=== PATIENT | female | born 1960 | race Caucasian/White ===

== ENCOUNTER 2017-07-08 10:20 | Emergency (ER) | payer OTHER ==
[2017-07-08 11:24] VITALS: BP 111/73
--- NOTE | 2017-07-08 11:40 | UC ---
Respiratory Complaint HPI - HPI Summary HPI Summary: cough for the last 8 days. no fever. Productive of yellow sputum. no sob. she has hx of bronchitis and at times needs prednisone. she has an inhaler at home already. - History of Current Complaint Chief Complaint: UCRespiratory Stated Complaint: CHEST CONGESTION, COUGH Time Seen by Provider: 07/08/17 11:30 Hx Obtained From: Patient Onset/Duration: Sudden Onset, Lasting Days Timing: Constant Severity Initially: Mild Severity Currently: Moderate Character: Cough: Productive Aggravating Factors: Nothing Alleviating Factors: Nothing Associated Signs And Symptoms: Positive: Wheezing, URI. Negative: Dyspnea, Fever, Chills, Pleuritic Chest Pain, Calf Pain, Calf Swelling - Risk Factors Pulmonary Embolism Risk Factors: Smoking - Allergies/Home Medications Allergies/Adverse Reactions: Allergies Allergy/AdvReac Type Severity Reaction Status Date / Time No Known Allergies Allergy Verified 07/08/17 11:20 Home Medications: Home Medications Fluticasone NASAL SPRAY 50MCG* [Flonase NASAL SPRAY 50MCG*] 2 spray BOTH NARES DAILY PRN 07/08/17 [History Confirmed 07/08/17] Varenicline (NF) [Chantix 1 MG TAB (NF)] 1 mg PO DAILY 07/08/17 [History Confirmed 07/08/17] PMH/Surg Hx/FS Hx/Imm Hx Previously Healthy: No - bronchitis. - Surgical History Surgical History: Yes Surgery Procedure, Year, and Place: left knee age 8 - Family History Known Family History: Positive: Hypertension - Social History Alcohol Use: Rare Substance Use Type: None Smoking Status (MU): Former Smoker Amount Used/How Often: 5 cigs per day Length of Time of Smoking/Using Tobacco: / PPD for 35 Years Have You Smoked in the Last Year: Yes When Did the Patient Quit Smoking/Using Tobacco: ~06/07/17 - Immunization History Most Recent Influenza Vaccination: Not the Season Review of Systems Respiratory: Cough All Other Systems Reviewed And Are Negative: Yes Physical Exam Triage Information Reviewed: Yes Appearance: Well-Appearing, No Pain Distress, Well-Nourished Vital Signs: Initial Vital Signs Temp 98.1 F 07/08/17 11:18 Pulse 80 07/08/17 11:18 Resp 18 07/08/17 11:18 BP 111/73 07/08/17 11:18 Pulse Ox 96 07/08/17 11:18 Vital Signs Reviewed: Yes Eye Exam: Normal ENT Exam: Normal Neck exam: Normal Respiratory: Positive: No respiratory distress, No accessory muscle use, Decreased breath sounds, Wheezing, Other: - truong decreased breath movements. no rales there is mild wheezing and rhonchi. there is no resp distress and she is talking in full sentences.. Negative: Crackles, Rhonchi, Stridor UC Diagnostic Evaluation - Laboratory O2 Sat by Pulse Oximetry: 96 Respiratory Course/Dx - Course Course Of Treatment: she has bronchitis without any symptoms or signs of pneumonia. she will return for any worsening. - Differential Dx/Diagnosis Provider Diagnoses: acute bronchitis with reactive airway disease. Discharge - Discharge Plan Condition: Good Disposition: HOME Prescriptions: Azithromyxin HERMANN (NF) [Z-Hermann (Zithromax) 250 mg tabs #6] 2 tab PO .TODAY, THEN 1 DAILY #6 tab Benzonatate CAP* [Tessalon 100 MG CAP*] 100 mg PO TID #20 cap predniSONE TAB* [Deltasone TAB*] 20 mg PO DAILY #20 tab Patient Education Materials: Acute Bronchitis (ED) Referrals: Jose E Vides MD [Primary Care Provider] - 4 Days
== END 2017-07-08 11:48 | disposition home or self-care (01) ==
LOC: UCCORT 10:20
DX: J20.9 Acute bronchitis, unspecified (principal); Z87.891 Personal history of nicotine dependence; J45.909 Unspecified asthma, uncomplicated
CPT/HCPCS: 99212; G0463

== ENCOUNTER 2018-10-06 10:12 | Emergency (ER) | payer OTHER ==
[2018-10-06 10:58] VITALS: BP 127/70
--- NOTE | 2018-10-06 11:33 | UC ---
Respiratory Complaint HPI - HPI Summary HPI Summary: Cough and congestion for 5 days or so. She has hx of asthma. REcently quit tob. She is not sure if she has copd but does need prednisone and inhalers with respiratory illness usually. - History of Current Complaint Chief Complaint: UCRespiratory Stated Complaint: COUGH,CONGESTION Time Seen by Provider: 10/06/18 11:16 Hx Obtained From: Patient ?: No Onset/Duration: Gradual Onset, Lasting Days Timing: Constant Severity Initially: Moderate Severity Currently: Moderate Pain Intensity: 0 Character: Cough: Nonproductive Aggravating Factors: Deep Breaths, Recumbent Position Alleviating Factors: Nothing Associated Signs And Symptoms: Positive: Chills, Wheezing, URI, Nasal Congestion , Hoarseness. Negative: Fever, Hemoptysis, Dizziness, Calf Pain, Calf Swelling - Allergies/Home Medications Allergies/Adverse Reactions: Allergies Allergy/AdvReac Type Severity Reaction Status Date / Time No Known Allergies Allergy Verified 10/06/18 10:58 Home Medications: Home Medications buPROPion TAB* [Wellbutrin TAB*] 75 mg PO BID 10/06/18 [History Confirmed ] PMH/Surg Hx/FS Hx/Imm Hx Previously Healthy: No - smoker, asthma. Respiratory History: Asthma - Surgical History Surgical History: Yes Surgery Procedure, Year, and Place: left knee age 8 - Family History Known Family History: Positive: Hypertension - Social History Alcohol Use: Rare Substance Use Type: None Smoking Status (MU): Former Smoker Amount Used/How Often: 5 cigs per day Length of Time of Smoking/Using Tobacco: / PPD for 35 Years Have You Smoked in the Last Year: Yes When Did the Patient Quit Smoking/Using Tobacco: ~06/07/17 - Immunization History Most Recent Influenza Vaccination: Not the Season Review of Systems All Other Systems Reviewed And Are Negative: Yes Constitutional: Positive: Chills ENT: Positive: Sinus Congestion Respiratory: Positive: Cough Is Patient Immunocompromised?: No Physical Exam Triage Information Reviewed: Yes Appearance: Well-Appearing, No Pain Distress, Well-Nourished Vital Signs: Initial Vital Signs Temp 99.3 F 10/06/18 10:56 Pulse 83 10/06/18 10:56 Resp 18 10/06/18 10:56 BP 127/70 10/06/18 10:56 Pulse Ox 98 10/06/18 10:56 Vital Signs Reviewed: Yes Eyes: Positive: Conjunctiva Clear. Negative: Conjunctiva Inflamed ENT: Positive: Pharynx normal, Nasal congestion, TMs normal, Hoarse voice, Uvula midline. Negative: Pharyngeal erythema, Nasal drainage, TM bulging, TM dull, TM red, Tonsillar swelling, Tonsillar exudate, Trismus, Muffled voice, Sinus tenderness Neck: Positive: Supple, Nontender, No Lymphadenopathy Respiratory: Positive: No respiratory distress, No accessory muscle use, Rhonchi , Wheezing, Other: - talking in full sentences.. Negative: Respiratory distress , Crackles, Stridor, Expiration, Inspiration Cardiovascular: Positive: RRR, No Murmur, Pulses Normal, Brisk Capillary Refill Abdomen Description: Positive: No Organomegaly, Soft. Negative: Distended, Guarding Musculoskeletal: Positive: Strength Intact, ROM Intact, No Edema Neurological: Positive: Alert, Muscle Tone Normal. Negative: Fatigued Psychological: Positive: Age Appropriate Behavior Skin: Negative: Rashes UC Diagnostic Evaluation - Laboratory O2 Sat by Pulse Oximetry: 98 Respiratory Course/Dx - Course Course Of Treatment: she will get tested for copd when this illness has gone. - Differential Dx/Diagnosis Differential Diagnosis/HQI/PQRI: Airway Obstruction, Foreign Body, Aspiration, Asthma, Bronchitis, CHF, Pulmonary Edema, Exacerbation Of COPD, Influenza, Laryngitis, Lower Resp Infection, Pneumothorax, Pulmonary Embolism Provider Diagnosis: COPD with exacerbation Discharge - Sign-Out/Discharge Documenting (check all that apply): Patient Departure All imaging exams completed and their final reports reviewed: No Studies - Discharge Plan Condition: Fair Disposition: HOME Prescriptions: Albuterol HFA INHALER* [Ventolin HFA Inhaler*] 1 puff INH Q4H PRN #1 mdi PRN Reason: Cough Inhaler, Assist Devices [Aerochamber Mini] 1 each MC BID #2 spacer Ipratropium HFA INHALER(NF) [Atrovent Hfa Inhaler(NF)] 1 puff INH QID #1 mdi Levofloxacin TAB* [Levaquin 750 MG TAB*] 750 mg PO DAILY #10 tab predniSONE [Prednisone 20 MG TAB] 20 mg PO DAILY #20 tablet Patient Education Materials: Acute Bronchitis (ED) Referrals: Kennedi Quevedo PA [Primary Care Provider] - 1 Week - Billing Disposition and Condition Condition: FAIR Disposition: Home
== END 2018-10-06 11:33 | disposition home or self-care (01) ==
LOC: UCCORT 10:12
DX: J44.1 Chronic obstructive pulmonary disease with (acute) exacerbation (principal); Z87.891 Personal history of nicotine dependence
CPT/HCPCS: 99212; G0463

== ENCOUNTER 2018-12-28 13:48 | Emergency (ER) | payer OTHER ==
--- OUTSIDE RECORDS SUMMARY | 2018-12-28 15:20 | XMS REPORT | Continuity of Care Document ---
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 Payers Date Identification Numbers Payment Provider Subscriber Effective: Policy Number: [id number] Lifetime Benefit Solns Kelsey Yun 2014 Group Number: [id number] [address] [address] [facility] [place] [address] Advance Directives Description No Information Available Problems Date Description Provider Status Onset: 07/16/2010 Pure hyperglyceridemia Evgeny De Oliveira DO Active Onset: 07/16/2010 Menopausal and postmenopausal disorders Evgeny De Oliveira DO Active Onset: 03/10/2009 Benign essential hypertension Evgeny De Oliveira DO Active Onset: 11/05/2015 Essential hypertension Evgeny De Oliveira DO Active Family History Description No Information Available Social History Type Date Description Comments Sex Unknown Marital Status lives alone [employer] Tobacco Use Start: Unknown Occasionally Smokes Cigarettes ETOH Use Occasionally consumes alcohol Allergies, Adverse Reactions, Alerts Description No Known Drug Allergies Medications Medication Date Status Form Strength Qnty SIG Indications Ordering Provider Amoxicillin/C 12/06/ Active Tablets 875-125mg 20tabs 1 by mouth J01.90 Konstantin lavulanate 2019 twice a day Antoni Potassium x 10 days DO Atrovent HFA 12/06/ Active Aerosol 17mcg/Act 12.900 2 puffs J01.90 Konstantin 2019 gm four times Antoni daily DO Bupropion HCL 06/19/ Active Tablets ER 150mg 177tab Take 1 Pryor, ER (Smoking 2017 12HR s Tablet By Telma Corrales) Mouth Every DO Day For 3 Days Then Take 1 Tablet By Mouth Twice A Day Ventolin HFA 05/25/ Active Aerosol 108(90Base 18unit Inhale 2 Konstantin, 2016 ) mcg/Act s Puffs Every Antoni, 4 Hours as DO Needed Benicar HCT 00/00/ Active Tablets 40-12.5mg 90tabs 1 by mouth I10 Konstantin , 0000 every day Antoni, Amoxicillin/C 10/27/ Hx Tablets 875-125mg 14tabs 1 by mouth J01.90 Konstantin lavulanate 2018 - twice a day Dianelys Corrales 11/03/ x 7 days DO 2018 Montelukast 06/05/ Hx Tablets 10mg 30tabs Take 1 J45.30 Konstantin, Sodium 2017 - Tablet By Antoni 10/27/ Mouth AT DO 2018 Night Chantix 03/26/ Hx Tablets 1mg 56tabs Take 1 F17.200 Konstantin, Continuing 2017 - Tablet By Ayse Corrales Anastacio 10/27/ Mouth Twice DO 2018 A Day Chantix 05/25/ Hx Tablets 0.5mg 1pack starter F17.200 Konstantin 2016 - pack as Antoni 10/27/ directed DO 2018 Chantix 05/25/ Hx Tablets 1mg 60tabs 1 by mouth F17.200 Yennifer, 2016 - twice a day Evgeny 2017 Amoxicillin/C 03/15/ Hx Tablets 875-125mg 14tabs 1 by mouth carlos King 2016 - twice a day JOSE Kolb Potassium 05/25/ x 7 days 2016 Ventolin HFA 03/15/ Hx Aerosol 108(90Base 8gm 2 puffs Vadim Quevedo, 2016 - ) mcg/Act every 4-6 JOSE Kolb 0803/ hours as 2017 needed for cough, wheezing, shortness of breath Amoxicillin/C 06/16/ Hx Tablets 500-125mg 20tabs 1 by mouth J01.90 Yennifer, lavulanate 2015 - twice a day Dianelys Pepper 11/24/ DO 2016 Astepro 06/16/ Hx Solution 0.15% 30ml 2 puffs Yennifer, 2015 - each Evgeny, 11/24/ nostril 2016 every d Wellbutrin SR 11/05/ Hx Tablets ER 150mg 180tab 1 by mouth F17.200 Yennifer, 2015 - 12HR s twice a day Evgeny, 2015 Augmentin 08/20/ Hx Tablets 500-125mg 20tabs 1 by mouth J20.9 Yennifer, 2014 - twice a day Evgeny, 2015 Robitussin ac 08/20/ Hx 300ml 2 teaspoon J20.9 Yennifer, 2014 - by mouth Evgeny, 11/05/ every 4 2015 hours as needed x 5 days Chantix 07/14/ Hx Tablets 0.5mg 1Pak one starter Yennifer, 2013 - pack use as Evgeny, 2016 Chantix 07/14/ Hx Tablets 1mg 60tabs 1 by mouth Yennifer, Continuing 2013 - twice a day Ayse Pepper Anastacio 2015 Immunizations CPT Code Status Date Vaccine Lot # [id number] Given 12/06/2018 Pneumococcal 23 Immunization Adult Or [id number] Immunosuppressed Patient 59822 Given 12/06/2018 Tdap (Adacel) Ages 7 And Above Only [id number] Given 07/15/2008 Tdap (Adacel) Ages 7 And Above Only Vital Signs Date Vital Result Comment 12/06/2018 1:17pm Body Temperature 98.6 F Weight 117.00 lb Heart Rate 78 /min BP Systolic 144 mmHg BP Diastolic 80 mmHg Respiratory Rate 18 /min 10/27/2018 10:00am Body Temperature 98.0 F Weight 112.00 lb Heart Rate 84 /min BP Systolic 118 mmHg BP Diastolic 70 mmHg Respiratory Rate 18 /min O2 % BldC Oximetry 97 % Ra 06/05/2018 9:17am Weight 113.00 lb Heart Rate 76 /min BP Systolic 130 mmHg BP Diastolic 70 mmHg Respiratory Rate 18 /min Height 61.50 inches 5'1.50" O2 % BldC Oximetry 100 % BMI (Body Mass Index) 21.0 kg/m2 11/27/2017 1:12pm Weight 113.00 lb Heart Rate 72 /min BP Systolic 140 mmHg BP Diastolic 70 mmHg Respiratory Rate 18 /min Height 61.50 inches 5'1.50" BMI (Body Mass Index) 21.0 kg/m2 05/25/2017 1:02pm Weight 107.25 lb Heart Rate 80 /min 72 Reg BP Systolic 110 mmHg BP Diastolic 74 mmHg BP Systolic Recheck 110 mmHg BP Diastolic Recheck 70 mmHg Respiratory Rate 16 /min Height 61.50 inches 5'1.50" BMI (Body Mass Index) 19.9 kg/m2 03/15/2017 11:19am Body Temperature 98.7 F Weight 107.00 lb Heart Rate 76 /min BP Systolic 110 mmHg BP Diastolic 70 mmHg Respiratory Rate 18 /min Height 61.50 inches 5'1.50" BMI (Body Mass Index) 19.9 kg/m2 11/24/2016 1:12pm Weight 107.00 lb Heart Rate 66 /min BP Systolic 120 mmHg BP Diastolic 70 mmHg BP Systolic Recheck 110 mmHg BP Diastolic Recheck 72 mmHg Respiratory Rate 18 /min Height 61.50 inches 5'1.50" BMI (Body Mass Index) 19.9 kg/m2 06/16/2016 2:52pm Body Temperature 98.9 F Weight 105.44 lb Heart Rate 72 /min BP Systolic 112 mmHg BP Diastolic 80 mmHg Respiratory Rate 24 /min O2 % BldC Oximetry 96 % Ra 05/24/2016 1:49pm Weight 105.00 lb Heart Rate 78 /min 80 Reg BP Systolic 110 mmHg BP Diastolic 58 mmHg BP Systolic Recheck 120 mmHg BP Diastolic Recheck 70 mmHg Respiratory Rate 18 /min 11/05/2015 11:20am Weight 109.19 lb Heart Rate 72 /min 72 Reg BP Systolic 118 mmHg BP Diastolic 80 mmHg BP Systolic Recheck 120 mmHg BP Diastolic Recheck 80 mmHg Respiratory Rate 18 /min Height 61.5 inches 5'1.50" (11/05/15) BMI (Body Mass Index) 20.3 kg/m2 08/20/2015 10:50am Body Temperature 98.4 F Weight 114.00 lb Heart Rate 72 /min BP Systolic 128 mmHg BP Diastolic 68 mmHg Respiratory Rate 18 /min Height 61.5 inches 5'1.50" O2 % BldC Oximetry 98 % Ra BMI (Body Mass Index) 21.2 kg/m2 12/22/2014 3:14pm Weight 114.00 lb Heart Rate 78 /min 72 Reg BP Systolic 118 mmHg BP Diastolic 70 mmHg BP Systolic Recheck 120 mmHg BP Diastolic Recheck 70 mmHg Respiratory Rate 18 /min Height 61.5 inches 5'1.50" BMI (Body Mass Index) 21.2 kg/m2 07/14/2014 1:58pm BP Systolic 120 mmHg BP Diastolic 76 mmHg 07/14/2014 1:58pm Weight 113.00 lb Heart Rate 72 /min 72 Reg BP Systolic 114 mmHg BP Diastolic 62 mmHg Respiratory Rate 18 /min Height 61.5 inches 5'1.50" 11/26/2013 1:20pm BP Systolic 130 mmHg BP Diastolic 80 mmHg 11/26/2013 1:20pm Weight 119.00 lb Heart Rate 78 /min 72 Reg BP Systolic 130 mmHg BP Diastolic 82 mmHg Respiratory Rate 18 /min 07/16/2013 1:14pm BP Systolic 120 mmHg BP Diastolic 70 mmHg 07/16/2013 1:14pm Weight 117.00 lb Heart Rate 70 /min 72 Reg BP Systolic 108 mmHg BP Diastolic 70 mmHg Respiratory Rate 18 /min 03/05/2013 1:19pm BP Systolic 120 mmHg BP Diastolic 72 mmHg 03/05/2013 1:19pm Weight 117.00 lb Heart Rate 72 /min 72 Reg BP Systolic 110 mmHg BP Diastolic 72 mmHg Respiratory Rate 18 /min 01/22/2013 8:43am Weight 118.00 lb Heart Rate 72 /min BP Systolic 108 mmHg BP Diastolic 68 mmHg Respiratory Rate 18 /min 11/05/2012 1:30pm BP Systolic 120 mmHg BP Diastolic 72 mmHg 11/05/2012 1:30pm Weight 117.00 lb Heart Rate 72 /min 72 Reg BP Systolic 118 mmHg BP Diastolic 72 mmHg Respiratory Rate 18 /min Height 61.75 inches 5'1.75" 05/29/2012 1:05pm BP Systolic 120 mmHg BP Diastolic 76 mmHg 05/29/2012 1:05pm Weight 114.00 lb Heart Rate 78 /min 72 Reg BP Systolic 112 mmHg BP Diastolic 70 mmHg Respiratory Rate 18 /min 11/03/2011 10:19am BP Systolic 130 mmHg BP Diastolic 80 mmHg 11/03/2011 10:19am Weight 114.00 lb Heart Rate 66 /min 64 Reg BP Systolic 130 mmHg BP Diastolic 76 mmHg Respiratory Rate 18 /min Height 61.75 inches 5'1.75" 07/04/2011 10:17am BP Systolic 124 mmHg BP Diastolic 76 mmHg 07/04/2011 10:17am Weight 110.00 lb Heart Rate 72 /min BP Systolic 122 mmHg BP Diastolic 68 mmHg Respiratory Rate 18 /min Height 61.5 inches 5'1.50" 05/26/2011 3:33pm Weight 110.00 lb Heart Rate 74 /min BP Systolic 110 mmHg BP Diastolic 70 mmHg Respiratory Rate 16 /min Height 61.5 inches 5'1.50" 11/22/2010 10:17am BP Systolic 122 mmHg BP Diastolic 72 mmHg 11/22/2010 10:17am Weight 121.00 lb Heart Rate 84 /min 80 Reg BP Systolic 122 mmHg BP Diastolic 72 mmHg Respiratory Rate 18 /min 07/19/2010 11:07am Body Temperature 98.7 F Heart Rate 74 /min BP Systolic 132 mmHg BP Diastolic 80 mmHg 07/16/2010 10:13am Body Temperature 98.7 F Weight 147.00 lb Heart Rate 72 /min BP Systolic 114 mmHg BP Diastolic 70 mmHg Respiratory Rate 18 /min 11/27/2009 1:02pm BP Systolic 124 mmHg BP Diastolic 76 mmHg 11/27/2009 1:02pm Weight 153.00 lb Heart Rate 72 /min 72 Reg BP Systolic 124 mmHg BP Diastolic 72 mmHg Respiratory Rate 18 /min 07/13/2009 1:24pm Weight 151.00 lb Heart Rate 72 /min BP Systolic 120 mmHg BP Diastolic 82 mmHg Respiratory Rate 18 /min 06/05/2009 11:03am Weight 151.00 lb Heart Rate 78 /min BP Systolic 116 mmHg BP Diastolic 82 mmHg Respiratory Rate 18 /min 03/10/2009 1:14pm BP Systolic 130 mmHg BP Diastolic 82 mmHg 03/10/2009 1:14pm Weight 149.00 lb Heart Rate 72 /min BP Systolic 130 mmHg BP Diastolic 86 mmHg Respiratory Rate 18 /min 11/07/2008 1:32pm Weight 144.00 lb Heart Rate 72 /min BP Systolic 128 mmHg BP Diastolic 78 mmHg Respiratory Rate 24 /min Height 61 inches 5'1" 09/23/2008 1:14pm BP Systolic 160 mmHg BP Diastolic 90 mmHg 09/23/2008 1:14pm Weight 147.00 lb Heart Rate 72 /min BP Systolic 162 mmHg BP Diastolic 88 mmHg Respiratory Rate 18 /min Height 61 inches 5'1" 07/15/2008 4:22pm BP Systolic 150 mmHg Both Arms BP Diastolic 92 mmHg Both Arms 07/15/2008 4:22pm Weight 143.00 lb Heart Rate 76 /min BP Systolic 150 mmHg BP Diastolic 92 mmHg Respiratory Rate 16 /min Height 61 inches 5'1" 06/12/2008 10:18am Body Temperature 99.1 F Weight 143.00 lb Heart Rate 109 /min BP Systolic 130 mmHg BP Diastolic 90 mmHg Respiratory Rate 15 /min Height 61 inches 5'1" O2 % BldC Oximetry 96 % 01/04/2008 9:32am Weight 142.00 lb Heart Rate 78 /min BP Systolic 122 mmHg BP Diastolic 74 mmHg Respiratory Rate 18 /min Height 61 inches 5'1" 12/24/2007 4:24pm Body Temperature 97.8 F Weight 144.00 lb Heart Rate 90 /min BP Systolic 130 mmHg BP Diastolic 90 mmHg Height 61 inches 5'1" 08/20/2007 3:14pm Body Temperature 97.9 F Weight 142.00 lb Heart Rate 72 /min BP Systolic 122 mmHg BP Diastolic 90 mmHg Respiratory Rate 16 /min Height 61 inches 5'1" 09/13/2006 3:50pm Body Temperature 97.7 F Weight 138.00 lb Heart Rate 72 /min BP Systolic 124 mmHg BP Diastolic 84 mmHg Respiratory Rate 16 /min Height 61 inches 5'1" 04/07/2006 1:37pm BP Systolic 130 mmHg BP Diastolic 78 mmHg 04/07/2006 1:37pm Weight 138.00 lb Heart Rate 84 /min BP Systolic 138 mmHg BP Diastolic 78 mmHg Respiratory Rate 30 /min Height 61 inches 5'1" Results Test Date Facility Test Result H/L Range Note Lipid 11/29/2018 [facility] Cholesterol 191 mg/dL 50-199 Triglycerides 128 mg/dL 30-200 HDL 53 mg/dL 35-85 1 Chol/ HDL Ratio 3.6 ratio Low 3.7-5.6 VLDL 26 mg/dL 2-29 LDL (Calc) 113 mg/dL High 20-99 2 CBC with Auto Diff-fcmg 11/29/2018 [facility] WBC 8.2 K/uL 4.1-11.0 RBC 4.65 M/uL 4.00-5.40 Hemoglobin 14.1 gm/dL 12.0-16.0 Hematocrit 41.8 % 36.0-47.0 MCV 89.9 fL 80.0-97.0 MCH 30.4 pg 27.0-32.0 MCHC 33.8 g/dL 32.0-36.0 RDW 12.5 % 11.5-14.5 PLT Count 336 K/ul 140-400 MPV 8.0 FL 7.1-10.7 Neutrophil 65.9 % 35.0-75.0 Lymphocyte 20.9 % 16.0-52.0 Monocyte 9.4 % 2.0-10.0 Eosinophil 2.7 % 0.0-5.0 Basophil 1.1 % 0.0-4.0 Abs Neutrophils 5.4 K/uL 2.1-8.0 Abs Lymphocytes 1.7 K/uL 0.8-5.5 Abs Monocytes 0.8 K/uL 0.1-1.0 Abs Eosinophils 0.2 K/uL 0.0-0.5 Abs Basophils 0.1 K/uL 0.0-0.3 Comprehensive Met Panel-FCMG 11/29/2018 [facility] Sodium 136 mmol/L 135- 146 3 Potassium 3.9 mmol/L 3.5-5.2 Chloride# 95 mmol/L Low 97-110 4 Carbon Dioxide 34 mmol/L 24-34 Glucose 92 mg/dL 70-105 BUN 9 mg/dL 6-26 Creatinine 0.9 mg/dL 0.5-1.4 Calcium 10.1 mg/dL 8.5-10.2 Total Protein 6.9 g/dL 6.0-8.0 Albumin 4.4 g/dL 3.6-4.9 Globulin 2.5 g/dL 2.0-3.5 A/G Ratio 1.8 Ratio 1.0-2.2 Total Bilirubin 0.8 mg/dL 0.1-1.3 Alkaline Phosphatase 97 U/L 24-140 Alt 14 U/L 3-42 Ast 19 U/L 8-42 Anion Gap 7 mmol/L 5-15 5 Thalia Egfr >60 >60 6 Non Thalia Egfr >60 >60 7 Laboratory test finding 11/29/2018 [facility] TSH 2.19 uIU/mL 0.35-4.94 CBC With Auto Diff 11/20/2017 [facility] WBC 6.3 K/uL 4.1-11.0 8 RBC 4.52 M/uL 4.00-5.40 Hemoglobin 14.1 gm/dL 12.0-16.0 Hematocrit 41.0 % 36.0-47.0 MCV 90.7 fL 80.0-97.0 MCH 31.2 pg 27.0-32.0 MCHC 34.3 g/dL 32.0-36.0 RDW 12.7 % 11.5-14.5 PLT Count 295 K/ul 140-400 MPV 8.3 FL 7.1-10.7 Neutrophil 61.3 % 35.0-75.0 Lymphocyte 29.6 % 16.0-52.0 Monocyte 6.7 % 2.0-10.0 Eosinophil 1.6 % 0.0-5.0 Basophil 0.8 % 0.0-4.0 Abs Neutrophils 3.9 K/uL 2.1-8.0 Abs Lymphocytes 1.9 K/uL 0.8-5.5 Abs Monocytes 0.4 K/uL 0.1-1.0 Abs Eosinophils 0.1 K/uL 0.0-0.5 Abs Basophils 0.1 K/uL 0.0-0.3 Basic (BMP) 11/20/2017 [facility] Sodium 139 mmol/L 135-146 9 Potassium 4.2 mmol/L 3.5-5.2 Chloride# 97 mmol/L 97-110 10 Carbon Dioxide 34 mmol/L 24-34 Glucose 78 mg/dL 70-105 BUN 9 mg/dL 6-26 Creatinine 0.8 mg/dL 0.5-1.4 Calcium 9.8 mg/dL 8.5-10.2 Non Thalia Egfr >60 >60 11 Thalia Egfr >60 >60 12 Anion Gap 8 mmol/L 7-16 13 Lipid Treatment 11/20/2017 [facility] Cholesterol 186 mg/dL 50-199 Triglycerides 122 mg/dL 30-200 HDL 54 mg/dL 35-85 14 Chol/ HDL Ratio 3.4 ratio Low 3.7-5.6 VLDL 24 mg/dL 2-29 LDL (Calc) 108 mg/dL High 20-99 15 Alt 22 U/L 3-42 Ast 23 U/L 8-42 Laboratory test finding 11/20/2017 [facility] Vitamin D 25 Hydroxy 33 ng/mL 30-100 16 Laboratory test finding 11/17/2016 [facility] Vit D,25 Hydroxy 32 ng/mL 31- 100 Lipid Treatment 11/17/2016 [facility] Cholesterol 184 mg/dL 50-199 Triglycerides 127 mg/dL 30-150 HDL 53 mg/dL 45-85 17 Chol/ HDL Ratio 3.5 ratio Low 3.7-5.6 VLDL 25 mg/dL 2-29 LDL (Calc) 106 mg/dL 20-129 18 Alt 16 U/L 3-42 Ast 18 U/L 8-42 Basic (BMP) 11/17/2016 [facility] Sodium 138 mmol/L 134-142 Potassium 4.2 mmol/L 3.5-5.2 Chloride 100 mmol/L 97-109 Carbon Dioxide 31 mmol/L 24-34 Glucose 87 mg/dL 70-105 BUN 13 mg/dL 6-26 Creatinine 0.8 mg/dL 0.5-1.4 Calcium 9.8 mg/dL 8.5-10.2 Anion Gap 11 mmol/L 6-14 Non Thalia Egfr >60 >60 19 Thalia Egfr >60 >60 20 CBC With Auto Diff 11/17/2016 [facility] WBC 7.5 K/uL 4.1-11.0 RBC 4.72 M/uL 4.00-5.40 Hemoglobin 14.5 gm/dL 12.0-16.0 Hematocrit 43.2 % 36.0-47.0 MCV 91.5 fL 80.0-97.0 MCH 30.8 pg 27.0-32.0 MCHC 33.7 g/dL 32.0-36.0 RDW 12.7 % 11.5-14.5 PLT Count 296 K/ul 140-400 Neutrophil 62.7 % 35.0-75.0 Lymphocyte 28.2 % 16.0-52.0 Monocyte 5.5 % 2.0-10.0 Eosinophil 1.4 % 0.0-5.0 Basophil 2.2 % 0.0-4.0 Abs Neutrophils 4.7 K/uL 2.1-8.0 Abs Lymphocytes 2.1 K/uL 0.8-5.5 Abs Monocytes 0.4 K/uL 0.1-1.0 Abs Eosinophils 0.1 K/uL 0.0-0.5 Abs Basophils 0.2 K/uL 0.0-0.3 CBC With Auto Diff 05/17/2016 [facility] WBC 7.0 K/uL 4.1-11.0 21 RBC 4.65 M/uL 4.00-5.40 Hemoglobin 14.3 gm/dL 12.0-16.0 Hematocrit 43.1 % 36.0-47.0 MCV 92.6 fL 80.0-97.0 MCH 30.8 pg 27.0-32.0 MCHC 33.3 g/dL 32.0-36.0 RDW 12.6 % 11.5-14.5 PLT Count 244 K/ul 140-400 Neutrophil 63.8 % 35.0-75.0 Lymphocyte 27.5 % 16.0-52.0 Monocyte 6.2 % 2.0-10.0 Eosinophil 1.5 % 0.0-5.0 Basophil 1.0 % 0.0-4.0 Abs Neutrophils 4.5 K/uL 2.1-8.0 Abs Lymphocytes 1.9 K/uL 0.8-5.5 Abs Monocytes 0.4 K/uL 0.1-1.0 Abs Eosinophils 0.1 K/uL 0.0-0.5 Abs Basophils 0.1 K/uL 0.0-0.3 Basic (BMP) 05/17/2016 [facility] Sodium 139 mmol/L 134-142 Potassium 3.4 mmol/L Low 3.5-5.2 Chloride 100 mmol/L 97-109 Carbon Dioxide 32 mmol/L 24-34 Glucose 53 mg/dL Low 70-105 BUN 15 mg/dL 6-26 Creatinine 0.9 mg/dL 0.5-1.4 Calcium 9.6 mg/dL 8.5-10.2 Anion Gap 10 mmol/L 6-14 Non Thalia Egfr >60 >60 22 Thalia Egfr >60 >60 23 Lipid Treatment 05/17/2016 [facility] Cholesterol 178 mg/dL 50-199 Triglycerides 118 mg/dL 30-150 HDL 50 mg/dL 45-85 24 Chol/ HDL Ratio 3.6 ratio Low 3.7-5.6 VLDL 24 mg/dL 2-29 LDL (Calc) 104 mg/dL 20-129 25 Alt 13 U/L 3-42 Ast 14 U/L 8-42 Laboratory test finding 05/17/2016 [facility] Vit D,25 Hydroxy 37 ng/mL 31- 100 Lipid Treatment 06/17/2015 [facility] Cholesterol 178 mg/dL 50-199 26 Triglycerides 165 mg/dL High 30-150 HDL 50 mg/dL 45-85 27 Chol/ HDL Ratio 3.6 ratio Low 3.7-5.6 VLDL 33 mg/dL High 2-29 LDL (Calc) 95 mg/dL 20-99 28 Alt 13 U/L 3-42 Ast 14 U/L 8-42 Basic (BMP) 06/17/2015 [facility] Sodium 135 mmol/L 134-142 Potassium 3.8 mmol/L 3.5-5.2 Chloride 99 mmol/L 97-109 Carbon Dioxide 31 mmol/L 24-34 Glucose 86 mg/dL 70-105 BUN 13 mg/dL 6-26 Creatinine 0.9 mg/dL 0.5-1.4 Calcium 9.8 mg/dL 8.5-10.2 Anion Gap 9 mmol/L 6-14 Non Thalia Egfr >60 >60 29 Thalia Egfr >60 >60 30 CBC With Auto Diff 06/17/2015 [facility] WBC 7.7 K/uL 4.1-11.0 RBC 4.64 M/uL 4.00-5.40 Hemoglobin 14.7 gm/dL 12.0-16.0 Hematocrit 43.8 % 36.0-47.0 MCV 94.5 fL 80.0-97.0 MCH 31.6 pg 27.0-32.0 MCHC 33.4 g/dL 32.0-36.0 RDW 13.1 % 11.5-14.5 PLT Count 261 K/ul 140-400 Neutrophil 64.3 % 35.0-75.0 Lymphocyte 26.5 % 16.0-52.0 Monocyte 6.8 % 2.0-10.0 Eosinophil 1.5 % 0.0-5.0 Basophil 0.9 % 0.0-4.0 Abs Neutrophils 4.9 K/uL 2.1-8.0 Abs Lymphocytes 2.0 K/uL 0.8-5.5 Abmon 0.5 K/uL 0.1-1.0 Abs Eosinophils 0.1 K/uL 0.0-0.5 Abs Basophils 0.1 K/uL 0.0-0.3 Laboratory test finding 11/21/2013 N2N/CCD Import % Baso. 1.4 % 0.0-2.0 % Eos. 1.8 % 0.0-4.0 % Lymph 23 % 20-44 % [facility] 5.8 % 2.0-10.0 % Eddie 68 % 50-70 Absolute Baso. 0.2 K/ul 0.0-0.3 Absolute Eos. 0.2 K/ul 0.0-0.5 Absolute Lymph. 2.6 K/ul 0.8-4.[address] [place]. 0.7 K/ul 0.1-1.0 Absolute Eddie. 7.58 K/ul 2.05-7.63 BUN 13.0 mg/dL 7.0-18.0 BUN/Creat Ratio 14.4 ratio 12.0-20.0 Calcium 10.1 mg/dL 8.7-10.5 Chloride 99.0 mmol/L 98.0-107.0 Co2 28.0 mmol/L 22.0-30.0 Creatinine-Serum 0.9 mg/dL 0.7-1.2 Glucose 89.0 mg/dL 75.0-110.0 HCT 43.6 % 37.0-51.0 HGB 13.7 Gm/dl 12.0-16.0 MCH 30.1 pg 26.0-32.0 MCHC 31.5 g/dL 31.0-36.0 MCV 95.6 Fl 80.0-97.0 MPV 6.5 fL 6.0-10.0 PLT 323 K/ul 140-440 Potasium 4.0 mmol/L 3.6-5.0 RBC 4.6 M/ul 4.2-6.3 RDW 11.4 % Low 11.5-14.5 Sodium 137.0 mmil/L 137.0-145.0 WBC 11.1 K/ul High 4.1-10.9 eGFR 69.1 Lipid Panel 11/21/2013 N2N/CCD Import Chol/HDL Ratio 3.3 ratio Cholesterol 183.0 mg/dL 50.0-199.0 HDL 55.0 mg/dL 45.0-86.0 LDL, Calculated 113.0 mg/dL 20.0-129.0 Triglycerides 75.0 mg/dL 30.0-150.0 vLDL 15.0 ng/dL Laboratory test 03/14/2013 N2N/CCD Import Polyp Colon See Note 31 finding And/Or Rectum Laboratory test 02/26/2013 N2N/CCD Import % Baso. 1.4 % 0.0-2.0 finding % Eos. 1.1 % 0.0-4.0 % Lymph 27 % 20-44 % [facility] [facility] 6.8 % 2.0-10.0 % Eddie 64 % 50-70 Absolute Baso. 0.1 K/ul 0.0-0.3 Absolute Eos. 0.1 K/ul 0.0-0.5 Absolute Lymph. 1.9 K/ul 0.8-4.[address] [place]. 0.5 K/ul 0.1-1.0 Absolute Eddie. 4.46 K/ul 2.05-7.63 BUN 18.0 mg/dL 7.0-18.0 BUN/Creat Ratio 20.0 ratio 12.0-20.0 Calcium 9.8 mg/dL 8.7-10.5 Chloride 102.0 mmol/L 98.0-107.0 Co2 25.0 mmol/L 22.0-30.0 Creatinine-Serum 0.9 mg/dL 0.7-1.2 Glucose 94.0 mg/dL 75.0-110.0 HCT 42.6 % 37.0-51.0 HGB 14.4 Gm/dl 12.0-16.0 MCH 32.3 pg High 26.0-32.0 MCHC 33.7 g/dL 31.0-36.0 MCV 95.7 Fl 80.0-97.0 MPV 7.2 fL 6.0-10.0 PLT 264 K/ul 140-440 Potasium 3.8 mmol/L 3.6-5.0 RBC 4.5 M/ul 4.2-6.3 RDW 11.3 % Low 11.5-14.5 Sodium 139.0 mmil/L 137.0-145.0 WBC 7.0 K/ul 4.1-10.9 eGFR 69.3 Lipid Panel 02/26/2013 N2N/CCD Import Chol/HDL Ratio 3.6 ratio Cholesterol 174.0 mg/dL 50.0-199.0 HDL 48.0 mg/dL 45.0-86.0 LDL, Calculated 100.0 mg/dL 20.0-129.0 Triglycerides 130.0 mg/dL 30.0-150.0 vLDL 26.0 ng/dL Laboratory test 05/24/2012 N2N/CCD Import Absolute 0.145 K/ul 0.0-0.3 32 finding Basophils Absolute Eosinophils 0.142 K/ul 0.0-0.5 Absolute Lymphocytes 2.43 K/ul 0.8-4.8 Absolute Monocytes 0.517 K/ul 0.1-1.0 Absolute Neutrophils 7.09 K/ul 2.05-7.63 Anion Gap 14 mmol/L 10-20 BUN 16 mg/dL 7-18 BUN/CR Ratio 18.0 Ratio 12-20 Basophil 1.4 % 0-2 Calcium 9.6 mg/dL 8.7-10.5 Carbon Dioxide 26 mmol/L 22-30 Chloride 106 mmol/L 98-107 Creatinine, Serum 0.9 mg/dL 0.7-1.2 Eosinophil 1.4 % 0-4 Glucose 87 mg/dL 65-105 Hematocrit 40.5 % 37.0-51.0 Hemoglobin 14.1 GM/dl 12.0-16.0 Lymphocytes 23.6 % 20-44 MCH 33.3 pg High 26.0-32.0 MCHC 34.8 g/dL 31.0-36.0 MCV 96 FL 80-97 Monocytes 5.0 % 2-10.0 Neutrophils 68.6 % 50-70 Platelet Count 254 K/ul 140-440 Potassium 4.5 mmol/L 3.6-5.0 RBC 4.23 M/ul 4.2-6.3 RDW 11.4 % Low 11.5-14.5 Sodium 142 mmol/L 137-145 Vitamin D,25-Hydroxy 54.2 ng/mL 30.0-100.0 33 WBC 10.3 K/ul 4.1-10.9 Lipid Panel 05/24/2012 N2N/CCD Import Chol/HDL Ratio 2.5 34 Cholesterol 162 mg/dL 50-199 HDL Cholesterol 64 mg/dL 45-86 LDL 82 mg/dL 20-129 Triglycerides 81 mg/dL 30-150 VLDL Cholesterol 16 mg/dL Lipid Panel 07/04/2011 N2N/CCD Import Chol/HDL Ratio 3.2 35, 36 Cholesterol 190 mg/dL 50-199 HDL Cholesterol 59 mg/dL 45-86 LDL 90 mg/dL 20-129 Triglycerides 206 mg/dL High 30-150 VLDL Cholesterol 41 mg/dL Laboratory test 07/04/2011 N2N/CCD Import Absolute 0.111 K/ul 0.0-0.3 finding Basophils Absolute Eosinophils 0.087 K/ul 0.0-0.5 Absolute Lymphocytes 2.40 K/ul 0.8-4.8 Absolute Monocytes 0.559 K/ul 0.1-1.0 Absolute Neutrophils 7.08 K/ul 2.05-7.63 Anion Gap 20 mmol/L 10-20 BUN 11 mg/dL 7-18 BUN/CR Ratio 11.1 Ratio Low 12-20 Basophil 1.1 % 0-2 Calcium 10.7 mg/dL High 8.7-10.5 Carbon Dioxide 31 mmol/L 22-31 Chloride 99 mmol/L 98-107 Creatinine, Serum 0.9 mg/dL 0.7-1.2 Eosinophil 0.8 % 0-4 Glucose 88 mg/dL 65-105 Hematocrit 45.6 % 37.0-51.0 Hemoglobin 15.5 GM/dl 12.0-16.0 Lymphocytes 23.4 % 20-44 MCH 32.4 pg High 26.0-32.0 MCHC 33.9 g/dL 31.0-36.0 MCV 96 FL 80-97 Monocytes 5.5 % 2-10.0 Neutrophils 69.2 % 50-70 Platelet Count 293 K/ul 140-440 Potassium 4.3 mmol/L 3.6-5.0 RBC 4.77 M/ul 4.2-6.3 RDW 11.0 % Low 11.5-14.5 Sodium 146 mmol/L 137-146 WBC 10.2 K/ul 4.1-10.9 Laboratory test 11/22/2010 N2N/CCD Import Absolute 0.102 K/ul 0.0-0.3 finding Basophils Absolute Eosinophils 0.094 K/ul 0.0-0.5 Absolute Lymphocytes 1.87 K/ul 0.8-4.8 Absolute Monocytes 0.477 K/ul 0.1-1.0 Absolute Neutrophils 5.85 K/ul 2.05-7.63 Anion Gap 13 mmol/L 10-20 BUN 15 mg/dL 7-18 BUN/CR Ratio 17.3 Ratio 12-20 Basophil 1.2 % 0-2 Calcium 9.8 mg/dL 8.7-10.5 Carbon Dioxide 31 mmol/L High 22-30 Chloride 103 mmol/L 98-107 Creatinine, Serum 0.9 mg/dL 0.7-1.2 Eosinophil 1.1 % 0-4 Glucose 89 mg/dL 65-105 Hematocrit 41.9 % 37.0-51.0 Hemoglobin 13.3 GM/dl 12.0-16.0 Lymphocytes 22.3 % 20-44 MCH 31.6 pg 26.0-32.0 MCHC 31.8 g/dL 31.0-36.0 MCV 99 FL High 80-97 Monocytes 5.7 % 2-10.0 Neutrophils 69.7 % 50-70 Platelet Count 257 K/ul 140-440 Potassium 4.0 mmol/L 3.6-5.0 RBC 4.22 M/ul 4.2-6.3 RDW 13.0 % 11.5-14.5 Sodium 143 mmol/L 137-145 WBC 8.4 K/ul 4.1-10.9 Lipid Panel 11/22/2010 N2N/CCD Import Chol/HDL Ratio 3.0 37 Cholesterol 160 mg/dL 50-199 HDL Cholesterol 52 mg/dL 45-86 LDL 76 mg/dL 20-129 Triglycerides 158 mg/dL High 30-150 VLDL Cholesterol 32 mg/dL Laboratory test finding 11/27/2009 N2N/CCD Import Anion Gap 16 mmol/L 10 -20 BUN 17 mg/dL 7-18 BUN/CR Ratio 18.4 Ratio 12-20 Calcium 9.9 mg/dL 8.7-10.5 Carbon Dioxide 30 mmol/L 22-30 Chloride 98 mmol/L 98-107 Creatinine, Serum 0.9 mg/dL 0.7-1.2 Glucose 93 mg/dL 65-105 Potassium 4.0 mmol/L 3.6-5.0 Sodium 141 mmol/L 137-145 Laboratory test 03/10/2009 N2N/CCD Import Absolute 0.122 K/ul 0.0-0.3 finding Basophils Absolute Eosinophils 0.125 K/ul 0.0-0.5 Absolute Lymphocytes 2.66 K/ul 0.8-4.8 Absolute Monocytes 0.446 K/ul 0.1-1.0 Absolute Neutrophils 6.01 K/ul 2.05-7.63 Anion Gap 15 mmol/L 10-20 BUN 14 mg/dL 7-18 BUN/CR Ratio 14.7 Ratio 12-20 Basophil 1.3 % 0-2 Calcium 10.0 mg/dL 8.7-10.5 Carbon Dioxide 27 mmol/L 22-30 Chloride 104 mmol/L 98-107 Creatinine, Serum 1.0 mg/dL 0.7-1.2 Eosinophil 1.3 % 0-4 Glucose 105 mg/dL 65-105 Hematocrit 40.2 % 37.0-51.0 Hemoglobin 13.9 GM/dl 12.0-16.0 Lymphocytes 28.4 % 20-44 MCH 31.8 pg 26.0-32.0 MCHC 34.6 g/dL 31.0-36.0 MCV 92 FL 80-97 Monocytes 4.8 % 2-10.0 Neutrophils 64.2 % 50-70 Platelet Count 289 K/ul 140-440 Potassium 3.9 mmol/L 3.6-5.0 RBC 4.38 M/ul 4.2-6.3 RDW 11.1 % Low 11.5-14.5 Sodium 142 mmol/L 137-145 WBC 9.4 K/ul 4.1-10.9 Lipid Panel 03/10/2009 N2N/CCD Import Chol/HDL Ratio 5.1 38 Cholesterol 196 mg/dL 50-199 HDL Cholesterol 38 mg/dL Low 45-86 LDL 87 mg/dL 20-129 Triglycerides 355 mg/dL High 30-150 VLDL Cholesterol 71 mg/dL Laboratory test 03/10/2009 N2N/CCD Import Vitamin 45.6 ng/mL 32.0-100.0 39 finding D,25-Hydroxy Laboratory test 04/21/2006 N2N/CCD Import Anion Gap 12 mmol/L 10-20 finding BUN 11 mg/dL 7-18 BUN/CR Ratio 11.1 Ratio Low 12-20 Calcium 9.0 mg/dL 8.7-10.5 Carbon Dioxide 25 mmol/L 22-30 Chloride 109 mmol/L High 98-107 Creatinine, Serum 1.0 mg/dL 0.7-1.2 Glucose 82 mg/dL 65-105 Potassium 4.4 mmol/L 3.6-5.0 Sodium 141 mmol/L 137-145 Lipid Panel 04/21/2006 N2N/CCD Import Chol/HDL Ratio 4.40 40 Cholesterol 159 mg/dL 50-199 HDL Cholesterol 36 mg/dL 29-86 LDL 98 mg/dL 20-129 Triglycerides 122 mg/dL 30-249 VLDL Cholesterol 24 mg/dL 1 Per NCEP ATP III Guidelines: Results lower than 40 mg/dL are suggestive of increased risk for coronary artery disease. Results > or=to 60 mg/dL are considered a negative risk factor. 2 Per NCEP ATP III Guidelines: Normal Population <130 Patients with medical conditions: CHD/DM Optimal: <100 Borderline high: 130-159 High: 160-189 Very high: >189 3 Updated reference range on new analyzer 4 Updated reference range on new analyzer 5 Updated Reference Range 6 Concerning GFR Guidelines for Americans: Normal function or mild renal disease, if clinically at risk: >/=60 mL/min Moderately decreased: 30-59 Severely decreased: 15-29 Renal failure: <15 7 Concerning GFR Guidelines: Normal function or mild renal disease, if clinically at risk: >/=60 mL/min Moderately decreased: 30-59 Severely decreased: 15-29 Renal failure: <15 Glomerular Filtration Rate (GFR) is estimated based on the MDRD equation, which assumes a steady state for creatinine as recommended by the National Kidney Disease Education Program in conjunction with the National Institutes of Health and the National Kidney Foundation. Clinical conditions in which it may be necessary to measure GFR by using clearance methods include extremes of age and body size, severe malnutrition or obesity, diseases of skeletal muscle, paraplegia or quadriplegia, vegetarian diet, rapidly changing kidney function, and calculation of the dose of potentially toxic drugs that are excreted by the kidneys. 8 SCHEDULE 1 WEEK PRIOR TO NEXT VISIT 9 Updated reference range on new analyzer 10 Updated reference range on new analyzer 11 Concerning GFR Guidelines: Normal function or mild renal disease, if clinically at risk: >/=60 mL/min Moderately decreased: 30-59 Severely decreased: 15-29 Renal failure: <15 Glomerular Filtration Rate (GFR) is estimated based on the MDRD equation, which assumes a steady state for creatinine as recommended by the National Kidney Disease Education Program in conjunction with the National Institutes of Health and the National Kidney Foundation. Clinical conditions in which it may be necessary to measure GFR by using clearance methods include extremes of age and body size, severe malnutrition or obesity, diseases of skeletal muscle, paraplegia or quadriplegia, vegetarian diet, rapidly changing kidney function, and calculation of the dose of potentially toxic drugs that are excreted by the kidneys. 12 Concerning GFR Guidelines for Americans: Normal function or mild renal disease, if clinically at risk: >/=60 mL/min Moderately decreased: 30-59 Severely decreased: 15-29 Renal failure: <15 13 Updated reference range on new analyzer 14 Per NCEP ATP III Guidelines: Results lower than 40 mg/dL are suggestive of increased risk for coronary artery disease. Results > or=to 60 mg/dL are considered a negative risk factor. 15 Per NCEP ATP III Guidelines: Normal Population <130 Patients with medical conditions: CHD/DM Optimal: <100 Borderline high: 130-159 High: 160-189 Very high: >189 16 Clinical Guidelines for recommended serum 25(OH)Vitamin D Deficient at less than 20 ng/mL Insufficient at 20 to <30 ng/mL Sufficient at 30-100 ng/mL Toxicity at greater than 100 ng/mL 17 Per NCEP ATP III Guidelines: Results lower than 40 mg/dL are suggestive of increased risk for coronary artery disease. Results > or=to 60 mg/dL are considered a negative risk factor. 18 Per NCEP ATP III Guidelines: Normal Population <130 Patients with medical conditions: CHD/DM Optimal: <100 Borderline high: 130-159 High: 160-189 Very high: >189 19 Concerning GFR Guidelines: Normal function or mild renal disease, if clinically at risk: >/=60 mL/min Moderately decreased: 30-59 Severely decreased: 15-29 Renal failure: <15 Glomerular Filtration Rate (GFR) is estimated based on the MDRD equation, which assumes a steady state for creatinine as recommended by the National Kidney Disease Education Program in conjunction with the National Institutes of Health and the National Kidney Foundation. Clinical conditions in which it may be necessary to measure GFR by using clearance methods include extremes of age and body size, severe malnutrition or obesity, diseases of skeletal muscle, paraplegia or quadriplegia, vegetarian diet, rapidly changing kidney function, and calculation of the dose of potentially toxic drugs that are excreted by the kidneys. 20 Concerning GFR Guidelines for Americans: Normal function or mild renal disease, if clinically at risk: >/=60 mL/min Moderately decreased: 30-59 Severely decreased: 15-29 Renal failure: <15 21 Pt was a No Show this AM. Rescheduled for the . 05/05/16 SCHEDULE 1 WEEK PRIOR TO NEXT VISIT Fastin hours Pt was a No Show this AM. Rescheduled for the . 05/05/16 SCHEDULE 1 WEEK PRIOR TO NEXT VISIT Fastin hours Pt was a No Show this AM. Rescheduled for the . 05/05/16 SCHEDULE 1 WEEK PRIOR TO NEXT VISIT Fastin hours Pt was a No Show this AM. Rescheduled for the . 05/05/16 SCHEDULE 1 WEEK PRIOR TO NEXT VISIT Fastin hours 22 Concerning GFR Guidelines: Normal function or mild renal disease, if clinically at risk: >/=60 mL/min Moderately decreased: 30-59 Severely decreased: 15-29 Renal failure: <15 Glomerular Filtration Rate (GFR) is estimated based on the MDRD equation, which assumes a steady state for creatinine as recommended by the National Kidney Disease Education Program in conjunction with the National Institutes of Health and the National Kidney Foundation. Clinical conditions in which it may be necessary to measure GFR by using clearance methods include extremes of age and body size, severe malnutrition or obesity, diseases of skeletal muscle, paraplegia or quadriplegia, vegetarian diet, rapidly changing kidney function, and calculation of the dose of potentially toxic drugs that are excreted by the kidneys. 23 Concerning GFR Guidelines for Americans: Normal function or mild renal disease, if clinically at risk: >/=60 mL/min Moderately decreased: 30-59 Severely decreased: 15-29 Renal failure: <15 24 Per NCEP ATP III Guidelines: Results lower than 40 mg/dL are suggestive of increased risk for coronary artery disease. Results > or=to 60 mg/dL are considered a negative risk factor. 25 Per NCEP ATP III Guidelines: Normal Population <130 Patients with medical conditions: CHD/DM Optimal: <100 Borderline high: 130-159 High: 160-189 Very high: >189 26 SCHEDULE 1 WEEK PRIOR TO NEXT VISIT 27 Per NCEP ATP III Guidelines: Results lower than 40 mg/dL are suggestive of increased risk for coronary artery disease. Results > or=to 60 mg/dL are considered a negative risk factor. 28 Per NCEP ATP III Guidelines: Normal Population <130 Patients with medical conditions: CHD/DM Optimal: <100 Borderline high: 130-159 High: 160-189 Very high: >189 29 Concerning GFR Guidelines: Normal function or mild renal disease, if clinically at risk: >/=60 mL/min Moderately decreased: 30-59 Severely decreased: 15-29 Renal failure: <15 Glomerular Filtration Rate (GFR) is estimated based on the MDRD equation, which assumes a steady state for creatinine as recommended by the National Kidney Disease Education Program in conjunction with the National Institutes of Health and the National Kidney Foundation. Clinical conditions in which it may be necessary to measure GFR by using clearance methods include extremes of age and body size, severe malnutrition or obesity, diseases of skeletal muscle, paraplegia or quadriplegia, vegetarian diet, rapidly changing kidney function, and calculation of the dose of potentially toxic drugs that are excreted by the kidneys. 30 Concerning GFR Guidelines for Americans: Normal function or mild renal disease, if clinically at risk: >/=60 mL/min Moderately decreased: 30-59 Severely decreased: 15-29 Renal failure: <15 31 OPERATION/PROCEDURE Colonoscopy DIAGNOSIS: "TRANSVERSE COLON, POLYPECTOMY": ADENOMATOUS COLONIC MUCOSA, FRAGMENTED WITH TUBULAR ARCHITECTURE. SULY/teresita GROSS "TRANSVERSE COLON POLYP". The specimen is received in an appropriately labeled container. This contains approximately ten rounded ceja colored pieces of soft tissue measuring up to 0.3 cm.; filtered and submitted in toto within a single cassette. SULY/teresita MICROSCOPIC Sections show colonic mucosa with tubular glands lined by columnar cells with elongated and hyperchromatic nuclei. PRE OPERATIVE DIAGNOSIS Screening colon REVIEW CODE CODE: I ----- SANDIE Pritchett MD 03/15/13 1345 ----- 32 FASTING SCHEDULE 1 WEEK PRIOR TO NEXT VISIT 33 Vitamin D deficiency has been defined by the [place] of [employer] and an Endocrine Society practice guideline as a level of serum 25-OH vitamin D less than 20 ng/mL (1,2). The Endocrine Society went on to further define vitamin D insufficiency as a level between 21 and 29 ng/mL (2). 1. IOM ([place] of [employer]). 2010. Dietary reference intakes for calcium and D. [place]: The National Academies Press. 2. Yazan FERRERA, Felicita BENNETT, Chaparrita MCCALLUM, et al. Evaluation, treatment, and prevention of vitamin D deficiency: an Endocrine Society clinical practice guideline. JCEM. 2010; 96(7):1911-30. Performed at: [facility] [address] [id number] [employer] Developer: Monique Tsang MD, Phone: [phone] 34 Normal Range: Male: <4.98 Female: <4.45 35 FASTING 36 Normal Range: Male: <4.98 Female: <4.45 37 Normal Range: Male: <4.98 Female: <4.45 38 Normal Range: Male: <4.98 Female: <4.45 39 Recent studies consider the lower limit of 32.0 ng/mL to be a threshold for optimal health. Juan PRASAD. J Nutr. 2004;135(2):317-22. 40 Normal Range: Male: <4.98 Female: <4.45 Procedures Date Code Description Status 01/12/2018 [id number] Colonoscopy Completed 09/19/2017 [id number] Mammogram Completed 03/14/2013 49400 Colonoscopy Flexible Diagnostic Completed 64542 Bone Density Study, Single Photon Absorptiometry Completed Encounters Type Date Location Provider Dx Diagnosis Office Visit 10/27/2018 [facility] Antoni Pryor DO J01.90 Acute sinusitis, 10:15a unspecified Office Visit 06/05/2018 [facility] Kennedi Quevedo PA I10 Essential (primary) 9:00a hypertension F17.200 Nicotine dependence, unspecified, uncomplicated E78.1 Pure hyperglyceridemia J45.30 Mild persistent asthma, uncomplicated Office Visit 11/27/2017 1:15p [facility] Kennedi Quevedo PA I10 Essential ( primary) hypertension E78.1 Pure hyperglyceridemia F17.200 Nicotine dependence, unspecified, uncomplicated N95.9 Unspecified menopausal and perimenopausal disorder Office Visit 05/25/2017 1:00p [facility] Evgeny De Oliveira DO I10 Essential ( primary) hypertension E78.1 Pure hyperglyceridemia N95.9 Unspecified menopausal and perimenopausal disorder F17.200 Nicotine dependence, unspecified, uncomplicated Office Visit 03/15/2017 11:15a [facility] Kennedi Quevedo PA J22 Unspecified acute lower respiratory infection Office Visit 11/24/2016 1:00p [facility] Evgeny De Oliveira DO I10 Essential ( primary) hypertension E78.1 Pure hyperglyceridemia N95.9 Unspecified menopausal and perimenopausal disorder F17.200 Nicotine dependence, unspecified, uncomplicated Office Visit 06/16/2016 2:45p [facility] Evgeny De Oliveira DO J01.90 Acute sinusitis, unspecified Office Visit 05/24/2016 1:45p [facility] Evgeny De Oliveira DO I10 Essential ( primary) hypertension E78.1 Pure hyperglyceridemia N95.9 Unspecified menopausal and perimenopausal disorder F17.200 Nicotine dependence, unspecified, uncomplicated Office Visit 11/05/2015 11:15a [facility] Evgeny De Oliveira DO I10 Essential ( primary) hypertension E78.1 Pure hyperglyceridemia N95.9 Unspecified menopausal and perimenopausal disorder F17.200 Nicotine dependence, unspecified, uncomplicated Office Visit 08/20/2015 11:00a [facility] Evgeny De Oliveira DO J20.9 Acute bronchitis, unspecified Office Visit 12/22/2014 3:00p [facility] Evgeny De Oliveira DO 401.1 Hypertension Benign 627.9 Menopausal & Postmenopausal Disorder Unspec 272.1 Hypertriglyceridemia Pure 305.1 Tobacco Use Disorder Plan of Treatment Future Appointment(s):06/05/2019 11:00 am - Kennedi Quevedo PA at [facility]2018 - Kennedi Quevedo PAI10 Essential (primary) hypertensionComments:Good control. Continue current treatment.Follow up:6 months f/u HTNE78.1 Pure hyperglyceridemiaComments:Diet gtyfkesohxX60.30 Mild persistent asthma, uncomplicatedComments:Doing well with prn ventolinWill give atrovent to help with current [id number] Acute sinusitis, unspecifiedNew Medication: Amoxicillin/Clavulanate Potassium 875-125 mg - 1 by mouth twice a day x 10 daysAtrovent HFA 17 mcg/Act - 2 puffs four times dailyComments:Push fluidsTylenol/motrin as needed for fever/painAugmentin as prescribedSinus rinse as neededCall with any questions or [id number] Encounter for immunization
--- OUTSIDE RECORDS SUMMARY | 2018-12-28 15:20 | XMS REPORT | Continuity of Care Document ---
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 Tobacco Use Start: Unknown Occasionally Smokes Cigarettes ETOH Use Occasionally consumes alcohol Allergies, Adverse Reactions, Alerts Description No Known Drug Allergies Medications Medication Date Status Form Strength Qnty SIG Indications Ordering Provider Baclofen 12/20/ Active Tablets 10mg 30tabs one tab by M54.32 Doc 2019 mouth MD Juanita every bedtime x 1-2 weeks then as needed Celecoxib 12/20/ Active Capsules 200mg 30caps 1 by mouth M54.32 Doc , 2019 every day MD Juanita for 1-2 weeks, then daily as needed Atrovent HFA 12/06/ Active Aerosol 17mcg/Act 12.900 2 puffs J01.90 Konstantin, 2019 gm four times Antoni, daily DO Bupropion HCL 06/19/ Active Tablets ER 150mg 177tab Take 1 Konstantin, ER (Smoking 2017 12HR s Tablet By Telma Corrales) Mouth DO Every Day For 3 Days Then Take 1 Tablet By Mouth Twice A Day Ventolin HFA 05/25/ Active Aerosol 108(90Base 18unit Inhale 2 Konstantin, 2016 ) mcg/Act s Puffs Antoni, Every 4 DO Hours as Needed Benicar HCT 00/ Active Tablets 40-12.5mg 90tabs 1 by mouth I10 Pryor , 0000 every day Antoni, DO Acetaminophen / Active Tablets 325mg 2 by mouth Unknown 0000 four times a day as needed Amoxicillin/Cla 12/06/ Hx Tablets 875-125mg 20tabs 1 by mouth J01.90 helga Pryor 2018 - twice a Antoni, Potassium 12/16/ day x 10 DO 2018 days Amoxicillin/Cla 10/27/ Hx Tablets 875-125mg 14tabs 1 by mouth J01.90 helga Pryor 2018 - twice a Antoni, Potassium 11/03/ day x 7 DO 2018 days Montelukast 06/05/ Hx Tablets 10mg 30tabs Take 1 J45.30 Konstantin Sodium 2017 - Tablet By Antoni, 10/27/ Mouth AT DO 2018 Night Chantix 03/26/ Hx Tablets 1mg 56tabs Take 1 F17.200 Konstantin Continuing 2017 - Tablet By Ayse Corrales Anastacio 10/27/ Mouth DO 2018 Twice A Day Chantix 05/25/ Hx Tablets 0.5mg 1pack starter F17.200 Konstantin, 2016 - pack as Antoni 10/27/ directed DO 2018 Chantix 05/25/ Hx Tablets 1mg 60tabs 1 by mouth F17.200 Yennifer, 2016 - twice a Evgeny, 06/05/ day DO 2017 Amoxicillin/Cla 03/15/ Hx Tablets 875-125mg 14tabs 1 by mouth J2helga Roth 2016 - twice a Kennedi, Potassium 05/25/ day x 7 PA 2016 days Ventolin HFA 03/15/ Hx Aerosol 108(90Base 8gm 2 puffs Vadim Quevedo, 2017 - ) mcg/Act every 4-6 Kennedi, 05/25/ hours as PA 2017 needed for cough, wheezing, shortness of breath Amoxicillin/Cla 06/16/ Hx Tablets 500-125mg 20tabs 1 by mouth J01.90 Yenniferflorinda clarkanate 2015 - twice a Evgeny, Potassium 11/24/ day DO 2016 Astepro 06/16/ Hx Solution 0.15% 30ml 2 puffs Yennifer, 2015 - each Evgeny, 11/24/ nostril DO 2016 every d Wellbutrin SR 11/05/ Hx Tablets ER 150mg 180tab 1 by mouth F17.200 Yennifer, 2015 - 12HR s twice a Evgeny, 05/24/ day DO 2015 Augmentin 08/20/ Hx Tablets 500-125mg 20tabs 1 by mouth J20.9 Yennifer, 2014 - twice a Evgeny, 11/05/ day DO 2015 Robitussin ac 08/20/ Hx 300ml 2 teaspoon J20.9 Yennifer, 2014 - by mouth Evgeny, 11/05/ every 4 DO 2015 hours as needed x 5 days Chantix 07/14/ Hx Tablets 0.5mg 1Pak one Yennifer, 2013 - starter Evgeny, 05/25/ pack use DO 2016 as directed Chantix 07/14/ Hx Tablets 1mg 60tabs 1 by mouth Yennifer, Continuing 2013 - twice a Evgeny, Month Anastacio 11/05/ day DO 2015 Immunizations CPT Code Status Date Vaccine Lot # [id number] Given 12/06/2018 Pneumococcal 23 Immunization Adult Or [id number] Immunosuppressed Patient 70481 Given 12/06/2018 Tdap (Adacel) Ages 7 And Above Only [id number] Given 08/10/2018 Flu Vaccine NOS 17859 Given 07/15/2008 Tdap (Adacel) Ages 7 And Above Only Vital Signs Date Vital Result Comment 12/20/2018 11:28am Weight 118.00 lb Heart Rate 82 /min BP Systolic 138 mmHg BP Diastolic 84 mmHg Respiratory Rate 18 /min O2 % BldC Oximetry 95 % Ra 12/06/2018 1:17pm Body Temperature 98.6 F Weight [...] Date Facility Test Result H/L Range Note Laboratory test 12/20/2018 [facility] Rheumatoid Factor <pending> finding Quant Laboratory test 12/20/2018 [facility] Esr-[facility]G <pending> finding CRP (C-Reactive) <pending> CCP Antibody-IgG <pending> Laboratory test finding 11/29/2018 [facility] TSH 2.19 uIU/mL 0.35-4.94 Lipid 11/29/2018 [facility] Cholesterol 191 mg/dL 50-199 Triglycerides 128 mg/dL 30-200 HDL 53 mg/dL 35-85 1 Chol/ HDL Ratio 3.6 ratio Low 3.7-5.6 VLDL 26 mg/dL 2-29 LDL (Calc) 113 mg/dL High 20-99 2 Comprehensive Met Panel-[facility]CMG 11/29/2018 [facility] Sodium 136 [...] 6 Non Thalia Egfr >60 >60 7 CBC with Auto Diff-fcmg 11/29/2018 [facility] WBC [...] Abs Basophils 0.1 K/uL 0.0-0.3 Laboratory test 11/20/2017 [facility] Vitamin D 25 33 ng/mL 30-100 8, 9 finding Hydroxy CBC With Auto Diff 11/20/2017 [facility] WBC 6.3 K/uL 4.1-11.0 RBC 4.52 M/uL 4.00-5.40 Hemoglobin 14.1 gm/dL [...] K/uL 0.0-0.5 Abs Basophils 0.1 K/uL 0.0-0.3 Lipid Treatment 11/20/2017 [facility] Cholesterol 186 mg/dL 50-199 Triglycerides 122 mg/dL 30-200 HDL 54 mg/dL 35-85 10 Chol/ HDL Ratio 3.4 ratio Low 3.7-5.6 VLDL 24 mg/dL 2-29 LDL (Calc) 108 mg/dL High 20-99 11 Alt 22 U/L 3-42 Ast 23 U/L 8-42 Basic (BMP) 11/20/2017 [facility] Sodium 139 mmol/L 135-146 12 Potassium 4.2 mmol/L 3.5-5.2 Chloride# 97 mmol/L 97-110 13 Carbon Dioxide 34 mmol/L 24-34 Glucose 78 mg/dL 70-105 BUN 9 mg/dL 6-26 Creatinine 0.8 mg/dL 0.5-1.4 Calcium 9.8 mg/dL 8.5-10.2 Non Thalia Egfr >60 >60 14 Thalia Egfr >60 >60 15 Anion Gap 8 mmol/L 7-16 16 Laboratory test finding 11/17/2016 [facility] Vit D,25 Hydroxy 32 ng/mL 31- 100 Lipid Treatment 11/17/2016 [facility] Cholesterol 184 mg/dL 50-199 Triglycerides 127 mg/dL 30-150 HDL 53 mg/dL 45-85 17 Chol/ HDL Ratio 3.5 ratio Low 3.7-5.6 VLDL 25 mg/dL 2-29 LDL (Calc) 106 mg/dL 20-129 18 Alt 16 U/L 3-42 Ast 18 U/L 8-42 CBC With Auto Diff 11/17/2016 [facility] WBC 7.5 K/uL 4.1-11.0 RBC 4.72 M/uL [...] K/uL 0.0-0.5 Abs Basophils 0.2 K/uL 0.0-0.3 Basic (BMP) 11/17/2016 [facility] Sodium 138 mmol/L 134-142 Potassium 4.2 mmol/L 3.5-5.2 Chloride 100 mmol/L 97-109 Carbon Dioxide 31 mmol/L 24-34 Glucose 87 mg/dL 70-105 BUN 13 mg/dL 6-26 Creatinine 0.8 mg/dL 0.5-1.4 Calcium 9.8 mg/dL 8.5-10.2 Anion Gap 11 mmol/L 6-14 Non Thalia Egfr >60 >60 19 Thalai Egfr >60 >60 20 Basic (BMP) 05/17/2016 [facility] Sodium 139 mmol/L 134-142 21 Potassium 3.4 mmol/L Low 3.5-5.2 Chloride 100 [...] 13 U/L 3-42 Ast 14 U/L 8-42 CBC With Auto Diff 05/17/2016 [facility] WBC 7.0 K/uL 4.1-11.0 RBC 4.65 M/uL 4.00-5.40 Hemoglobin 14.3 gm/dL [...] Basophils 0.1 K/uL 0.0-0.3 Laboratory test finding 05/17/2016 [facility] Vit D,25 Hydroxy 37 ng/mL 31- 100 Basic (BMP) 06/17/2015 [facility] Sodium 135 mmol/L 134-142 26 Potassium 3.8 mmol/L 3.5-5.2 Chloride 99 mmol/L 97-109 Carbon Dioxide 31 mmol/L 24-34 Glucose 86 mg/dL 70-105 BUN 13 mg/dL 6-26 Creatinine 0.9 mg/dL 0.5-1.4 Calcium 9.8 mg/dL 8.5-10.2 Anion Gap 9 mmol/L 6-14 Non Thalia Egfr >60 >60 27 Thalia Egfr >60 >60 28 Lipid Treatment 06/17/2015 [facility] Cholesterol 178 mg/dL 50-199 Triglycerides 165 mg/dL High 30-150 HDL 50 mg/dL 45-85 29 Chol/ HDL Ratio 3.6 ratio Low 3.7-5.6 VLDL 33 mg/dL High 2-29 LDL (Calc) 95 mg/dL 20-99 30 Alt 13 U/L 3-42 Ast 14 U/L 8-42 CBC With Auto Diff 06/17/2015 [facility] WBC 7.7 K/uL 4.1-11.0 RBC 4.64 M/uL [...] 0.0-4.0 % Lymph 23 % 20-44 % Talbot 5.8 % 2.0-10.0 % Eddie 68 % 50-70 Absolute Baso. 0.2 K/ul 0.0-0.3 Absolute Eos. 0.2 K/ul 0.0-0.5 Absolute Lymph. 2.6 K/ul 0.8-4.8 Absolute Talbot. 0.7 K/ul 0.1-1.0 Absolute Eddie. 7.58 K/ul [...] 0.0-4.0 % Lymph 27 % 20-44 % Talbot 6.8 % 2.0-10.0 % Eddie 64 % 50-70 Absolute Baso. 0.1 K/ul 0.0-0.3 Absolute Eos. 0.1 K/ul 0.0-0.5 Absolute Lymph. 1.9 K/ul 0.8-4.8 Absolute Talbot. 0.5 K/ul 0.1-1.0 Absolute Eddie. 4.46 K/ul [...] Triglycerides 130.0 mg/dL 30.0-150.0 vLDL 26.0 ng/dL Lipid Panel 05/24/2012 N2N/CCD Import Chol/HDL Ratio 2.5 32, 33 Cholesterol 162 mg/dL 50-199 HDL Cholesterol 64 mg/dL 45-86 LDL 82 mg/dL 20-129 Triglycerides 81 mg/dL 30-150 VLDL Cholesterol 16 mg/dL Laboratory test 05/24/2012 N2N/CCD Import Absolute 0.145 K/ul 0.0-0.3 finding Basophils Absolute Eosinophils 0.142 K/ul 0.0-0.5 [...] mmol/L 137-145 Vitamin D,25-Hydroxy 54.2 ng/mL 30.0-100.0 34 WBC 10.3 K/ul 4.1-10.9 Laboratory test 07/04/2011 N2N/CCD Import Absolute 0.111 K/ul 0.0-0.3 35 finding Basophils Absolute Eosinophils 0.087 K/ul 0.0-0.5 [...] 146 mmol/L 137-146 WBC 10.2 K/ul 4.1-10.9 Lipid Panel 07/04/2011 N2N/CCD Import Chol/HDL Ratio 3.2 36 Cholesterol 190 mg/dL 50-199 HDL Cholesterol 59 mg/dL 45-86 LDL 90 mg/dL 20-129 Triglycerides 206 mg/dL High 30-150 VLDL Cholesterol 41 mg/dL Laboratory test 11/22/2010 N2N/CCD Import Absolute 0.102 [...] WBC 9.4 K/ul 4.1-10.9 Lipid Panel 03/10/2009 N2N/[employer] Import Chol/HDL Ratio 5.1 38 Cholesterol 196 mg/dL 50-199 HDL Cholesterol 38 mg/dL Low 45-86 LDL 87 mg/dL 20-129 Triglycerides 355 mg/dL High 30-150 VLDL Cholesterol 71 mg/dL Laboratory test 03/10/2009 N2N/[employer] Import Vitamin 45.6 ng/mL 32.0-100.0 39 finding D,25-Hydroxy Laboratory test 04/21/2006 N2N/[employer] Import Anion Gap 12 mmol/L 10-20 finding [...] 1 WEEK PRIOR TO NEXT VISIT 9 Clinical Guidelines for recommended serum 25(OH)Vitamin D Deficient at less than 20 ng/mL Insufficient at 20 to <30 ng/mL Sufficient at 30-100 ng/mL Toxicity at greater than 100 ng/mL 10 Per NCEP ATP III Guidelines: Results lower than 40 mg/dL are suggestive of increased risk for coronary artery disease. Results > or=to 60 mg/dL are considered a negative risk factor. 11 Per NCEP ATP III Guidelines: Normal Population <130 Patients with medical conditions: CHD/DM Optimal: <100 Borderline high: 130-159 High: 160-189 Very high: >189 12 Updated reference range on new analyzer 13 Updated reference range on new analyzer 14 Concerning GFR Guidelines: Normal function or mild [...] drugs that are excreted by the kidneys. 15 Concerning GFR Guidelines for Americans: Normal function or mild renal disease, if clinically at risk: >/=60 mL/min Moderately decreased: 30-59 Severely decreased: 15-29 Renal failure: <15 16 Updated reference range on new analyzer 17 Per NCEP ATP III Guidelines: Results [...] 1 WEEK PRIOR TO NEXT VISIT 27 Concerning GFR Guidelines: Normal function or mild [...] drugs that are excreted by the kidneys. 28 Concerning GFR Guidelines for Americans: Normal function or mild renal disease, if clinically at risk: >/=60 mL/min Moderately decreased: 30-59 Severely decreased: 15-29 Renal failure: <15 29 Per NCEP ATP III Guidelines: Results lower than 40 mg/dL are suggestive of increased risk for coronary artery disease. Results > or=to 60 mg/dL are considered a negative risk factor. 30 Per NCEP ATP III Guidelines: Normal Population <130 Patients with medical conditions: CHD/DM Optimal: <100 Borderline high: 130-159 High: 160-189 Very high: >189 31 OPERATION/PROCEDURE Colonoscopy DIAGNOSIS: "TRANSVERSE COLON, POLYPECTOMY": ADENOMATOUS COLONIC MUCOSA, FRAGMENTED WITH TUBULAR ARCHITECTURE. Crystal GROSS "TRANSVERSE COLON POLYP". The specimen is received in an appropriately labeled container. This contains approximately ten rounded ceja colored pieces of soft tissue measuring up to 0.3 cm.; filtered and submitted in toto within a single cassette. Crystal MICROSCOPIC Sections show colonic mucosa with tubular glands lined by columnar cells with elongated and hyperchromatic nuclei. PRE OPERATIVE DIAGNOSIS Screening colon REVIEW CODE CODE: I ----- SANDIE Pritchett MD 03/15/13 8214 ----- 32 FASTING SCHEDULE 1 WEEK PRIOR TO NEXT VISIT 33 Normal Range: Male: <4.98 Female: <4.45 34 Vitamin D deficiency has been defined by the [place] of [employer] and an Endocrine Society practice guideline as a level of serum 25-OH vitamin D less than 20 ng/mL (1,2). The Endocrine Society went on to further define vitamin D insufficiency as a level between 21 and 29 ng/mL (2). 1. IOM ([place] of [employer]). 2010. Dietary reference intakes for calcium and D. [place]: The National Academies Press. 2. Yazan MF, Felicita NC, Faisal-Irving MCCALLUM, et al. Evaluation, treatment, and prevention of vitamin D deficiency: an Endocrine Society clinical practice guideline. JCEM. 2010; 96(7):1911-30. Performed at: RN - [facility] [address] [id number] Assistance Representative: Monique Tsang MD, Phone: [phone] FASTING 36 Normal Range: Male: <4.98 Female: <4.45 37 Normal Range: Male: <4.98 Female: <4.45 38 Normal Range: Male: <4.98 Female: <4.45 39 Recent studies consider the lower limit of 32.0 ng/mL to be a threshold for optimal health. Juan PRASAD. J Nutr. 2004;135(2):317-22. 40 Normal Range: Male: <4.98 Female: <4.45 Procedures Date Code Description Status 01/12/2018 79033514 Colonoscopy Completed 09/19/2017 90432065 Mammogram Completed 03/14/2013 31889 Colonoscopy Flexible Diagnostic Completed 03092 Bone Density Study, Single Photon Absorptiometry Completed Encounters Type Date Location Provider Dx Diagnosis Office Visit 12/06/2018 [facility] Kennedi Quevedo PA I10 Essential (primary) 1:15p hypertension E78.1 Pure hyperglyceridemia J45.30 Mild persistent asthma, uncomplicated J01.90 Acute sinusitis, unspecified Z23 Encounter for immunization Office Visit 10/27/2018 10:15a [facility] Antoni Pryor DO J01.90 Acute sinusitis, unspecified Office Visit 06/05/2018 9:00a [facility] Kennedi Quevedo PA I10 Essential ( primary) hypertension F17.200 Nicotine dependence, unspecified, uncomplicated E78.1 Pure hyperglyceridemia J45.30 Mild persistent asthma, uncomplicated Office Visit 11/27/2017 1:15p [facility] Kennedi Quevedo PA I10 Essential ( primary) hypertension E78.1 Pure hyperglyceridemia F17.200 Nicotine dependence, unspecified, uncomplicated N95.9 Unspecified menopausal and perimenopausal disorder Office Visit 05/25/2017 1:00p [facility] Evgeny De Oliveira DO I10 Essential ( primary) hypertension E78.1 Pure hyperglyceridemia N95.9 Unspecified menopausal and perimenopausal disorder F17.200 Nicotine dependence, unspecified, uncomplicated Office Visit 03/15/2017 11:15a [facility] Kennedi Quevedo PA J22 Unspecified acute lower respiratory infection Office Visit 11/24/2016 1:00p [facility] Evgeny De Oliveira DO I10 Essential ( primary) hypertension E78.1 Pure hyperglyceridemia N95.9 Unspecified menopausal and perimenopausal disorder F17.200 Nicotine dependence, unspecified, uncomplicated Office Visit 06/16/2016 2:45p [facility] Evgeny De Oliveira DO J01.90 Acute sinusitis, unspecified Office Visit 05/24/2016 1:45p [facility] Evgeny De Oliveira DO I10 Essential ( primary) hypertension E78.1 Pure hyperglyceridemia N95.9 Unspecified menopausal and perimenopausal disorder F17.200 Nicotine dependence, unspecified, uncomplicated Office Visit 11/05/2015 11:15a [facility] Evgeny De Oliveira DO I10 Essential ( primary) hypertension E78.1 Pure hyperglyceridemia N95.9 Unspecified menopausal and perimenopausal disorder F17.200 Nicotine dependence, unspecified, uncomplicated Office Visit 08/20/2015 11:00a [facility] Evgeny De Oliveira DO J20.9 Acute bronchitis, unspecified Office Visit 12/22/2014 3:00p [facility] Evgeny De Oliveira DO 401.1 Hypertension Benign 627.9 Menopausal & Postmenopausal Disorder Unspec 272.1 Hypertriglyceridemia Pure 305.1 Tobacco Use Disorder Plan of Treatment Future Appointment(s):06/05/2019 11:00 am - Kennedi Quevedo PA at [facility]2018 - Juanita Roach, MDM54.32 Sciatica, LEFT sideNew Medication:Baclofen 10 mg - one tab by mouth every bedtime x 1-2 weeks then as neededCelecoxib 200 mg - 1 by mouth every day for 1-2 weeks, then daily as neededNew Xrays:Spine, Lumbosacral, 2 Or 3 Views, Scheduled: 12/20/18Comments:suspect pain is coming from the spine. It is concerning that her history of joint pain started at age 9. will check xray and rheumatology labs. she has normal renal function so will treat with celebrex daily for 1-2 weeks then daily as needed. WIll also give muscle relaxer at bedtime for 1-2 weeks then as needed.M25.552 Pain in LEFT hipNew Xrays:Hips, Bilateral With Pelvis, 3-4 Views, Scheduled: Comments:doubt that pain is starting in the hip but will check xray
== END 2018-12-28 14:55 | disposition left against medical advice (07) ==
LOC: UCCORT 13:48
DX: Z53.21 Procedure and treatment not carried out due to patient leaving prior to being seen by health care provider (principal)